=== PATIENT | female | born 1960 | race Two or more races ===

== ENCOUNTER → 2024-12-06 | Outpatient (CLI) | payer MEDICARE, MEDICAID, SELFPAY ==
--- NOTE | 2024-12-06 09:45 | XR_ITS ---
Examination: Breast ultrasound, unilateral, right complete Date and time of exam: December 06, 2024 0957 hours INDICATIONS: Outside mammogram September 14, 2023 8 mm focal asymmetry 9:00 position right breast Technique: Real-time tapia scale ultrasonographic imaging performed right breast including all 4 quadrants as well as nipple retroareolar and axillary region. Findings: 9:00 cyst 6 x 4 mm 9:00 cyst 4 x 4 millimeter No solid nodules Retroareolar dilated ducts IMPRESSION: BI-RADS Category 2: Benign findings
--- NOTE | 2024-12-06 10:15 | XR_ITS ---
Examination: Diagnostic digital mammography, unilateral, right Computer aided detection 3-D breast Tomosynthesis, unilateral Date and time of exam: December 06, 2024 1009 hours INDICATIONS: Outside mammogram June 25, 2023 right breast 8mm asymmetry 9:00 position right breast Technique: Nonmagnified MLO, CC views of the right breast have been obtained, reconstructed from 3-D Tomosynthesis images. R2 computer aided detection program utilized for evaluation of suspicious masses and/or abnormal calcifications. 3-D Tomosynthesis images obtained. Findings: The breast is heterogeneously dense, which may obscure small masses 6 mm focal asymmetry upper right breast MLO view, posterior depth, 6 cm from the nipple Impression: BI-RADS category 3: Probably benign findings 6 mm focal asymmetry upper right breast MLO view, recommend follow-up spot tomographic views upper outer quadrant right breast
== END | disposition home or self-care (01) ==
LOC: CDIM 09:37
PROVIDERS: PCP Physician Assistant; Referring Provider Physician Assistant; Visit Provider Physician Assistant
DX: R92.331 Mammographic heterogeneous density, right breast (principal); N64.89 Other specified disorders of breast
CPT/HCPCS: 76641; 77061; 77065; G0279

== ENCOUNTER → 2024-12-10 | Outpatient (CLI) | payer MEDICARE, SELFPAY ==
--- NOTE | 2024-12-10 11:00 | XR_ITS ---
Examination: Screening digital mammography, bilateral Computer aided detection 3-D breast Tomosynthesis, bilateral Date and time of exam: December 10, 2024 1030 hours Compared to mammograms dating to January 08, 2015 Indication: Screening Technique: Nonmagnified MLO, CC views of the breasts to been obtained, reconstructed from 3-D Tomosynthesis images. R2 computer aided detection program utilized for evaluation of suspicious masses and/or abnormal calcifications. 3-D Tomosynthesis images obtained. Findings: Scattered areas of fibroglandular density 10 mm focal asymmetry nipple level left breast CC view posterior depth 6 mm focal asymmetry upper outer right breast Impression: BI-RADS Category 0: Incomplete: Need additional imaging evaluation 10 mm focal asymmetry nipple level left breast CC view, recommend follow-up spot tomographic CC view, spot tomographic MLO view outer left breast 6 mm focal asymmetry upper outer right breast. Recommend follow-up spot tomographic views of this asymmetry Recommend bilateral breast sonography to complete the workup
== END | disposition home or self-care (01) ==
PROVIDERS: Referring Provider Physician Assistant; Visit Provider Physician Assistant
DX: Z12.31 Encounter for screening mammogram for malignant neoplasm of breast (principal); R92.8 Other abnormal and inconclusive findings on diagnostic imaging of breast; N64.89 Other specified disorders of breast
CPT/HCPCS: 77063; 77067

== ENCOUNTER → 2025-04-08 | Outpatient (CLI) | payer MEDICARE, MEDICAID, SELFPAY ==
--- NOTE | 2025-04-08 10:30 | XR_ITS ---
Examination: Breast ultrasound, unilateral, right complete Date and time of exam: April 08, 2025 1036 hours INDICATIONS: Mammogram December 10, 2024 6 mm focal asymmetry upper outer right breast Technique: Real-time tapia scale ultrasonographic imaging performed right breast including all 4 quadrants as well as nipple retroareolar and axillary region. Findings: 1:00 oval mass circumscribed 7 x 7 mm 9:00 cyst 6 x 5 mm IMPRESSION: BI-RADS Category 3: Probably benign findings One additional 6 month right breast sonogram follow-up is needed to document stability of 1:00 nodule described above
--- NOTE | 2025-04-08 10:39 | XR_ITS ---
Examination: Diagnostic digital mammography, unilateral, right Computer aided detection 3-D breast Tomosynthesis, unilateral Date and time of exam: April 08, 2025 1101 hours INDICATIONS: Mammogram December 10, 2024 6 mm focal asymmetry upper outer right breast Technique: Nonmagnified MLO, CC views of the right breast have been obtained, reconstructed from 3-D Tomosynthesis images. R2 computer aided detection program utilized for evaluation of suspicious masses and/or abnormal calcifications. 3-D Tomosynthesis images obtained. Findings: Scattered areas of fibroglandular density 6 mm nodule upper right breast MLO view Impression: BI-RADS category 3: Probably benign findings One additional 6 month right mammogram follow-up is needed to document stability of 6 mm nodule upper right breast MLO view, posterior depth
== END | disposition home or self-care (01) ==
PROVIDERS: PCP Physician Assistant; Referring Provider Physician Assistant; Visit Provider Physician Assistant
DX: R92.331 Mammographic heterogeneous density, right breast (principal); N63.10 Unspecified lump in the right breast, unspecified quadrant
CPT/HCPCS: 76641; 77061; 77065; G0279

== ENCOUNTER → 2025-09-25 | Outpatient (CLI) | payer MEDICARE, MEDICAID, SELFPAY ==
--- NOTE | 2025-09-25 10:00 | XR_ITS ---
Examination: Breast ultrasound, unilateral, right Date and time of exam: September 25, 2025, 1037 hours INDICATIONS: Mammogram April 08, 2025 6 mm nodule upper right breast MLO view, right breast sonogram April 08, 2025 1:00 nodule 7 x 7 mm Technique: Real-time tapia scale ultrasonographic imaging performed right breast including all 4 quadrants as well as nipple retroareolar and axillary region. Findings: Right 12:00 cyst 6 x 8 mm 1:00 cyst 5 x 5 mm 9:00 cyst 7 x 7 mm Dilated retroareolar ducts No solid nodules IMPRESSION: BI-RADS Category 2: Benign findings
== END | disposition home or self-care (01) ==
PROVIDERS: PCP Physician Assistant; Referring Provider Physician Assistant; Visit Provider Physician Assistant
DX: N60.19 Diffuse cystic mastopathy of unspecified breast (principal); R92.8 Other abnormal and inconclusive findings on diagnostic imaging of breast
CPT/HCPCS: 76641